=== PATIENT | male | born 1995 ===

== ENCOUNTER 2022-01-20 21:34 | Emergency (ER) | payer OTHER ==
[~2022-01-20] VITALS: Ht 170.2 cm; Wt 76.2 kg
[2022-01-21] MEDS ORDERED: KETO10TA2 PO (01:43)
[2022-01-21] MEDS ORDERED: ORPHENADRINE C100 MG PO (01:43)
== END 2022-01-21 01:52 ==
LOC: ER 21:34
DX: M54.50 Low back pain, unspecified (principal)

== ENCOUNTER 2022-06-14 13:49 | Emergency (ER) | payer OTHER ==
[~2022-06-14] VITALS: Ht 152.4 cm; Wt 77.1 kg
[~2022-06-14 13:49] MED LIST: KETO10TA2 PO; ORPHENADRINE C100 MG PO
== END 2022-06-14 20:14 | disposition home or self-care (01) ==
LOC: ER 13:49
DX: M54.50 Low back pain, unspecified (principal)